=== PATIENT | male | born 1970 | race Caucasian/White ===

== ENCOUNTER 2020-06-07 11:57 | Emergency (ER) | payer OTHER ==
[~2020-06-07] VITALS: Ht 180.3 cm; Wt 120.2 kg
[2020-06-07 12:29] LABS: HEMOGLOBIN 15.5 gm/dL (14.0-18.0); MCH 30.6 pg (26.0-34.0); MCHC 33.8 g/dL (28.0-37.0); MCV 90.5 fL (80.0-100.0); RBC 5.08 mil/uL (4.50-6.00); RDW 14.2 % (10.5-14.5); WBC 7.2 thou/uL (4.0-11.0)
[2020-06-07 12:37] LABS: ANION GAP 7 mmol/L (7-16); BUN 23 mg/dL (7-18); CHLORIDE 103 mmol/L (98-107); CO2 28 mmol/L (21-32); CREATININE 1.4 mg/dL (0.7-1.3); GLUCOSE 124 mg/dL (74-106); POTASSIUM 3.7 mmol/L (3.5-5.1); SODIUM 138 mmol/L (136-145)
[2020-06-07 12:48] LABS: ALBUMIN 4.3 g/dL (3.4-5.0); SGOT 30 U/L (15-37); SGPT 70 U/L (30-65); TOTAL BILIRUBIN 0.4 mg/dL (0.2-1.0); TOTAL PROTEIN 8.2 g/dL (6.4-8.2); TROPONIN-I <0.06 ng/mL (<0.06)
--- NOTE | 2020-06-07 14:48 | EKG ---
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 : 1970 Requested By: Gregorio Gusman Order Number: [id number] MD: Raj Quintero Measurements Intervals [place] Rate: 84 P: 3 NE: 171 QRS: -26 QRSD: 120 T: -8 QT: 378 QTc: 447 Interpretive Statements Sinus rhythm Left ventricular hypertrophy Borderline T abnormalities, inferior leads No previous ECG available for comparison Electronically Signed On 06-07-2020 14:47:55 [employer] by Raj Quintero [email or web address] <ELECTRONICALLY SIGNED> By: Raj Quintero MD, [facility] 06/07/20 1447 1205 [id number] Raj Quintero MD, FACC /EPI
[2020-06-07 16:26] VITALS: BP 141/90
--- NOTE | 2020-06-08 07:19 | EKG ---
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 : 1970 Requested By: Price Jesus Order Number: [id number] MD: Raj Quintero Measurements Intervals [place] Rate: 90 P: -7 AL: 168 QRS: -26 QRSD: 112 T: -19 QT: 373 QTc: 457 Interpretive Statements Sinus rhythm Left ventricular hypertrophy Borderline T abnormalities, inferior leads Compared to ECG 06/07/2020 12:05:09 No significant changes Electronically Signed On 06-08-2020 7:19:33 [employer] by Raj Quintero [email or web address] <ELECTRONICALLY SIGNED> By: Raj Quintero MD, [facility] 06/08/20 0719 1430 143 Raj Quintero MD, FACC /EPI
== END 2020-06-07 16:26 | disposition home or self-care (01) ==
LOC: ER 11:57
PROVIDERS: Emergency Medicine
DX: R07.89 Other chest pain (principal); R42 Dizziness and giddiness; I10 Essential (primary) hypertension